=== PATIENT | female | born 1945 | race Caucasian/White ===

== ENCOUNTER → 2019-01-23 | Outpatient (CLI) | payer MEDICARE, OTHER ==
--- NOTE | 2019-01-23 15:30 | Diagnostic Imaging Report ---
INDICATION: Chronic left knee pain. TIME OF EXAM: 3:06 p.m. FINDINGS: Three views of the left knee demonstrate severe medial and patellofemoral compartment degenerative change with joint space narrowing and marginal spurring. Lateral compartment is fairly well maintained. No fracture or dislocation is seen. There is a small joint effusion. IMPRESSION: Severe degenerative changes. No acute bony abnormality is detected. Dictated by: Dictated on workstation # [id number]
== END ==
LOC: RAD FS 14:59
PROVIDERS: ATTEND Nurse Practitioner
DX: M17.12 Unilateral primary osteoarthritis, left knee (principal)
CPT/HCPCS: 73562